=== PATIENT | female | born 1935 | race Caucasian/White ===

== ENCOUNTER 2017-09-01 11:35 | Inpatient (IN) | payer MEDICARE, OTHER, MEDICAID ==
[2017-09-01] MEDS ORDERED: NS 0.9% 1000 ML* 1,000 ML IV SCH ×2 (12:15→15:15)
[2017-09-01 13:12] LABS: Hematocrit 35 % (35-47); Hemoglobin 11.3 g/dl (12.0-16.0); Mean Corpuscular HGB Conc 32 g/dl (31-36); Mean Corpuscular Hemoglobin 30 pg (27-31); Mean Corpuscular Volume 93 fL (80-97); Mean Platelet Volume 8 um3 (7.4-10.4); Red Cell Distribution Width 17 % (10.5-15); White Blood Count 18.9 10^3/ul (3.5-10.8)
[2017-09-01 13:13] LABS: Add Diff/Slide Review? Manual Diff Added; Comments Flag Yes
[2017-09-01 13:24] LABS: ALT 8 U/L (7-52); AST 11 U/L (13-39); Albumin 1.9 g/dL (3.2-5.2); Alkaline Phosphatase 172 U/L (34-104); Anion Gap 5 mmol/L (2-11); BUN/Creatinine Ratio 19.2 (8-20); Blood Urea Nitrogen 10 mg/dL (6-24); C Reactive Protein 91.28 mg/L (< 5.00); CO2 Carbon Dioxide 26 mmol/L (22-32); Calcium 8.2 mg/dL (8.6-10.3); Chloride 107 mmol/L (101-111); Creatine Kinase 10 U/L (10-223); EGFR African American 145.9 (>60); EGFR Non-African American 113.5 (>60); Globulin 4.1 g/dL (2-4); Glucose 113 mg/dL (70-100); Lipase < 10 U/L (11.0-82.0); Magnesium 1.3 mg/dL (1.9-2.7); Potassium 3.4 mmol/L (3.5-5.0); Sodium 138 mmol/L (133-145)
[2017-09-01 13:26] LABS: Troponin I 0.01 ng/mL (<0.04)
--- NOTE | 2017-09-01 13:36 | RAD ---
INDICATION: Weakness. COMPARISON: There are no prior studies available for comparison. TECHNIQUE: A portable view of the chest was obtained. FINDINGS: Cardiac and mediastinal contours appear to be within normal limits. The lungs are underinflated. There is a small infiltrate at the right lung base. No pleural effusion is seen. IMPRESSION: LOW LUNG VOLUMES, SMALL RIGHT BASILAR INFILTRATE.
[2017-09-01 13:38] LABS: Add Path Review? YES; Neutrophil % 81 % (38-83); RBC Morphology Normal (Normal)
[2017-09-01 14:03] LABS: TSH (Thyroid Stimulating Horm) 1.88 mcIU/mL (0.34-5.60)
[2017-09-01] MEDS ORDERED: Magnesium Sulfate 2 GM IV* 2 GM/50 ML BAG IVPB ONE (15:15)
[2017-09-01] MEDS ORDERED: Piperacillin/Tazobac ADVAN(*) 3.375 GM in NS 0.9% 100 ML* 100 ML IVPB ONE (15:15)
[2017-09-01] MEDS ORDERED: Acetaminophen TAB* 325 MG PO PRN (15:15)
[2017-09-01] MEDS ORDERED: Potassium Chlor TAB* 20 MEQ TAB.ER PO ONE (15:15)
[2017-09-01] MEDS ORDERED: Ondansetron INJ* 2 MG/ML VIAL IV PRN (15:15)
[2017-09-01] MEDS ORDERED: Morphine INJ* 2 MG/ML 1 ML SYRINGE (TWO MG - NEW SYRINGE VERSION) IV PRN (15:15)
[2017-09-01] MEDS ORDERED: Vancomycin(*) 1,000 MG in NS 0.9% 250 ML* 250 ML IVPB SCH (15:16)
[2017-09-01] MEDS ORDERED: fentaNYL PATCH 25 MCG/HR TRANSDERM SCH (16:00)
[2017-09-01] MEDS ORDERED: Zosyn per Pharmacy* NOTE FOLLOW UP SCH (16:00)
[2017-09-01] MEDS ORDERED: Scopolamine 1.5 mg* PATCH TRANSDERM SCH (16:00)
[2017-09-01] MEDS ORDERED: Scopolamine PATCH Remove* 1 NOTE MISC PATCH OFF SCH (16:00)
[2017-09-01] MEDS ORDERED: Vancomycin per Pharmacy* NOTE FOLLOW UP PRN (16:03)
[2017-09-01] MEDS ORDERED: Vancomycin(*) 2,000 MG in NS 0.9% 500 ML* 500 ML IVPB ONE (17:00)
--- NOTE | 2017-09-01 18:07 | ED ---
Charis Flowers Julia, scribed for Rudy Newell MD on 09/01/17 at 1406 . Complex/Multi-Sys Presentation - HPI Summary HPI Summary: This patient is an 82 year old F BIBA to [facility] with a chief complaint of buttock bed sores characterized as burning worse since earlier today. The patient rates the pain 10/10 in severity. Symptoms aggravated by nothing. Symptoms alleviated by nothing. Patient reports intermittent chills and nausea for the past couple of weeks. Patient denies fever, SOB, chest pain, and abdominal pain. - History Of Current Complaint Chief Complaint: EDGeneral Time Seen by Provider: 09/01/17 12:12 Hx Obtained From: Patient Onset/Duration: Gradual Onset, Still Present, Worse Since Timing: Constant Aggravating Factor(s): nothing Alleviating Factor(s): nothing Associated Signs And Symptoms: Positive: Other - intermittent chills and nausea - Allergies/Home Medications Allergies/Adverse Reactions: Allergies Allergy/AdvReac Type Severity Reaction Status Date / Time Cephalexin [From Keflex] Allergy Unknown Verified 09/01/17 11:52 Reaction Details Ciprofloxacin [From Cipro] Allergy Unknown Verified 09/01/17 11:52 Reaction Details Codeine Allergy Unknown Verified 09/01/17 11:52 Reaction Details Iodine Allergy Unknown Verified 09/01/17 11:52 Reaction Details Rofecoxib [From Vioxx] Allergy Unknown Verified 09/01/17 11:52 Reaction Details Sulfa Antibiotics Allergy Unknown Verified 09/01/17 11:52 Reaction Details Tramadol Allergy Unknown Verified 09/01/17 11:52 Reaction Details Home Medications: Home Medications Acetaminophen [Acetaminophen Extra Stren] 1,000 mg PO Q8HR PRN 09/01/17 [ History Confirmed 09/01/17] Ascorbic Acid TAB* [Vitamin C TAB*] 500 mg PO DAILY 09/01/17 [History Confirmed 09/01/17] Aspirin EC Low Dose* [Ecotrin EC Low Dose 81 MG*] 81 mg PO DAILY 09/01/17 [ History Confirmed 09/01/17] Baclofen TAB* [Lioresal TAB*] 10 mg PO DAILY 09/01/17 [History Confirmed ] Bisacodyl SUPP* [Dulcolax Supp*] 10 mg ID DAILY PRN 09/01/17 [History Confirmed 09/01/17] DOXYcycline CAP(*) [DOXYcycline 100MG CAP(*)] 100 mg PO BID 09/01/17 [History Confirmed 09/01/17] Erythromycin OPHTH.OINT* [Ilotycin OPHTH.OINT*] 1 applic BOTH EYES BID 09/01/17 [History Confirmed 09/01/17] Erythromycin OPTH OINT* [Erythromycin 0.5% OPTH OINT*] 1 applic BOTH EYES BID [History Confirmed 09/01/17] Fexofenadine (NF) [Val 180 (NF)] 180 mg PO DAILY PRN 09/01/17 [History Confirmed 09/01/17] Gabapentin CAP(*) [Neurontin 400 mg CAP(*)] 800 mg PO TID 09/01/17 [History Confirmed 09/01/17] Ipratropium [place] (Nasal) [Ipratropium [place]] 0.06 % BOTH NARES BID [History Confirmed 09/01/17] Isosorbide Mononitrate ER TAB* [Imdur ER TAB*] 120 mg PO DAILY 09/01/17 [ History Confirmed 09/01/17] LORazepam TAB(*) [Ativan 0.5 MG TAB (*)] 0.5 mg PO Q4H PRN 09/01/17 [History Confirmed 09/01/17] Lisinopril TAB* [Prinivil TAB*] 5 mg PO DAILY 09/01/17 [History Confirmed ] Melatonin 10 mg PO BEDTIME PRN 09/01/17 [History Confirmed 09/01/17] Metoprolol Succinate XL TAB* [Toprol XL TAB*] 25 mg PO DAILY 09/01/17 [History Confirmed 09/01/17] Scopolamine 1.5 mg* PATCH* [Transderm-Scop 1.5 mg Patch*] 1 patch TRANSDERM Q72H 09/01/17 [History Confirmed 09/01/17] Simethicone [Eql Gas Relief Ultra Stre] 180 mg PO TID WITH MEALS PRN 09/01/17 [ History Confirmed 09/01/17] Simvastatin TAB(NF) [Zocor(NF)] 20 mg PO DAILY 09/01/17 [History Confirmed 09/01] Trolamine Salicylate [Asper-Flex] 10 % TOPICAL QPM 12/20/17 [History Confirmed 09/01/17] fentaNYL PATCH 25 MCG/HR* [Duragesic PATCH 25 Mcg/Hr*] 25 mcg TRANSDERM Q72H [History Confirmed 09/01/17] guaiFENesin ER TAB [Mucinex*] 600 mg PO Q12H 09/01/17 [History Confirmed ] PMH/Surg Hx/FS Hx/Imm Hx Opthamlomology History: Denies: Hx Legally Blind EENT History: Denies: Hx Deafness - Surgical History Surgery Procedure, Year, and Place: partial hysterectomy, cholecystectomy, appendectomy Infectious Disease History: No Infectious Disease History: Denies: Traveled Outside the [place] in Last 30 Days - Family History Known Family History: Negative: Cardiac Disease - Social History Alcohol Use: None Hx Substance Use: No Substance Use Type: Reports: None Smoking Status (MU): Unknown if Ever Smoked Review of Systems Positive: Chills. Negative: Fever Negative: Chest Pain Negative: Shortness Of Breath Positive: Nausea. Negative: Abdominal Pain Positive: Other - buttock sores All Other Systems Reviewed And Are Negative: Yes Physical Exam - Summary Physical Exam Summary: General: well-appearing, no pain distress Skin: warm, color reflects adequate perfusion, dry Head: normal Eyes: EOMI, ESTEPHANIA ENT: normal Neck: supple, nontender Respiratory: Rhonchi bilaterally, breath sounds present Cardiovascular: RRR Abdomen: soft, nontender, bowel sounds present Bowel: present Musculoskeletal: normal, strength/ROM intact, bilateral pitting edema Neurological: normal, sensory/motor intact, A&O x3 Psychological: affect/mood appropriate Triage Information Reviewed: Yes Vital Signs On Initial Exam: Initial Vitals BP 132/64 09/01/17 11:46 Vital Signs Reviewed: Yes - [place] Coma Scale Coma Scale Total: 15 Diagnostics - Vital Signs Vital Signs Temp Pulse Resp BP Pulse Ox 09/01/17 12:44 146/73 09/01/17 12:31 132/56 09/01/17 12:20 88 87 09/01/17 12:00 115 132/60 79 09/01/17 11:48 89 94 09/01/17 11:47 98.5 F 85 16 132/64 95 09/01/17 11:46 132/64 - Laboratory Lab Results: Lab Results 09/01/17 09/01/17 09/01/17 Range/Units 12:55 12:55 12:55 WBC (3.5-10.8) 10^3/ul RBC (4.0-5.4) 10^6/ul Hgb (12.0-16.0) g/dl Hct (35-47) % MCV (80-97) fL MCH (27-31) pg MCHC (31-36) g/dl RDW (10.5-15) % Plt Count (150-450) 10^3/ul MPV (7.4-10.4) um3 Absolute Neuts (auto) Absolute Lymphs (auto) Absolute Monos (auto) Absolute Eos (auto) Absolute Basos (auto) Absolute Nucleated RBC Neutrophils % (38-83) % Lymphocytes % (25-47) % Monocytes % (0-13) % Normal RBC Morphology (Normal) Hem Pathologist Commnt INR (Anticoag Therapy) 1.11 H (0.77-1.02) APTT 33.0 (26.0-36.3) seconds D-Dimer, Quantitative 458 H (Less Than 230) ng/mL Sodium 138 (133-145) mmol/L Potassium 3.4 L (3.5-5.0) mmol/L Chloride 107 (101-111) mmol/L Carbon Dioxide 26 (22-32) mmol/L Anion Gap 5 (2-11) mmol/L BUN 10 (6-24) mg/dL Creatinine 0.52 (0.51-0.95) mg/dL Est GFR ( Amer) 145.9 (>60) Est GFR (Non-Af Amer) 113.5 (>60) BUN/Creatinine Ratio 19.2 (8-20) Glucose 113 H (70-100) mg/dL Lactic Acid (0.5-2.0) mmol/L Calcium 8.2 L (8.6-10.3) mg/dL Magnesium 1.3 L (1.9-2.7) mg/dL Total Bilirubin 0.40 (0.2-1.0) mg/dL AST 11 L (13-39) U/L ALT 8 (7-52) U/L Alkaline Phosphatase 172 H (34-104) U/L Total Creatine Kinase 10 (10-223) U/L CK-MB (CK-2) 1.5 (0.6-6.3) ng/mL Troponin I 0.01 (<0.04) ng/mL C-Reactive Protein 91.28 H (< 5.00) mg/L B-Natriuretic Peptide 75 ( - 100) pg/mL Total Protein 6.0 L (6.4-8.9) g/dL Albumin 1.9 L (3.2-5.2) g/dL Globulin 4.1 H (2-4) g/dL Albumin/Globulin Ratio 0.5 L (1-3) Lipase < 10 L (11.0-82.0) U/L TSH Pending 09/01/17 09/01/17 Range/Units 12:55 12:55 WBC 18.9 H (3.5-10.8) 10^3/ul RBC 3.80 L (4.0-5.4) 10^6/ul Hgb 11.3 L (12.0-16.0) g/dl Hct 35 (35-47) % MCV 93 (80-97) fL MCH 30 (27-31) pg MCHC 32 (31-36) g/dl RDW 17 H (10.5-15) % Plt Count 409 (150-450) 10^3/ul MPV 8 (7.4-10.4) um3 Absolute Neuts (auto) Pending Absolute Lymphs (auto) Pending Absolute Monos (auto) Pending Absolute Eos (auto) Pending Absolute Basos (auto) Pending Absolute Nucleated RBC Pending Neutrophils % 81 (38-83) % Lymphocytes % 10 L (25-47) % Monocytes % 9 (0-13) % Normal RBC Morphology Normal (Normal) Hem Pathologist Commnt Pending INR (Anticoag Therapy) (0.77-1.02) APTT (26.0-36.3) seconds D-Dimer, Quantitative (Less Than 230) ng/mL Sodium (133-145) mmol/L Potassium (3.5-5.0) mmol/L Chloride (101-111) mmol/L Carbon Dioxide (22-32) mmol/L Anion Gap (2-11) mmol/L BUN (6-24) mg/dL Creatinine (0.51-0.95) mg/dL Est GFR ( Amer) (>60) Est GFR (Non-Af Amer) (>60) BUN/Creatinine Ratio (8-20) Glucose (70-100) mg/dL Lactic Acid 1.0 (0.5-2.0) mmol/L Calcium (8.6-10.3) mg/dL Magnesium (1.9-2.7) mg/dL Total Bilirubin (0.2-1.0) mg/dL AST (13-39) U/L ALT (7-52) U/L Alkaline Phosphatase (34-104) U/L Total Creatine Kinase (10-223) U/L CK-MB (CK-2) (0.6-6.3) ng/mL Troponin I (<0.04) ng/mL C-Reactive Protein (< 5.00) mg/L B-Natriuretic Peptide ( - 100) pg/mL Total Protein (6.4-8.9) g/dL Albumin (3.2-5.2) g/dL Globulin (2-4) g/dL Albumin/Globulin Ratio (1-3) Lipase (11.0-82.0) U/L TSH Result Diagrams: 09/01/17 12:55 09/01/17 12:55 Lab Statement: Any lab studies that have been ordered have been reviewed, and results considered in the medical decision making process. - Radiology CXR Radiology Interpretation Completed By: Radiologist - LOW LUNG VOLUMES, SMALL RIGHT BASILAR INFILTRATE. ED doctor has reviewed this radiology report. - EKG 1225 Cardiac Rate: NL EKG Rhythm: Sinus Rhythm - 90 BPM Ectopy: None EKG Interpretation: Minimal St elevation, inferior leads Complex Multi-Symp Course/Dx Course Of Treatment: ADMIT HOSPITALIST - Diagnoses Provider Diagnoses: Decubitus ulcer Discharge - Discharge Plan Condition: Stable Disposition: ADMITTED TO [facility] The documentation as recorded by the Charis johnson Julia accurately reflects the service I personally performed and the decisions made by , Rudy Newell MD.
[2017-09-01] MEDS: guaiFENesin ER TAB 600 MG PO SCH (18:20)
[2017-09-01] MEDS: fentaNYL Patch Check Q Shift 1 NOTE SCH (19:20)
--- NOTE | 2017-09-01 21:02 | HP ---
CC: Dr. Armendariz; Dr. Hartley; Dr. Olmedo * HISTORY AND PHYSICAL: DATE OF ADMISSION: 09/01/17 PRIMARY CARE PROVIDER: [facility], Dr. Armendariz. ATTENDING PHYSICIAN WHILE IN THE HOSPITAL: Ingrid Fisher MD * (report dictated by Alexys Solitario NP) CONSULTING ID SPECIALIST: Dr. Hartley. CONSULTING OUT OF CARE PHYSICIAN: Dr. Olmedo. 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 HISTORY OF PRESENT ILLNESS: Mrs. Jose is an 82-year-old female patient who on 07/12/17 was admitted to [facility], was diagnosed with sepsis secondary to presumed UTI, pneumonia, and possible wound infection to her sacrum, ultimately was found to have osteomyelitis. The patient had deteriorated. She was essentially becoming less responsive. She was quite ill and the family decided to forgo aggressive therapy with PICC line and IV antibiotics and she was transferred to [facility], which is a [facility] facility connected to [place]. While there, they were going to move her to the third floor at [place] and she may have to share a room. The family had requested that she be transferred back to [place] where she had been living since 2011 because she has severe MS. The patient when she got to [place] just at the beginning of August, she made a miraculous improvement, she was conversing, she was talking. She was going to continue wound care again for her stage IV pressure ulcer. She was to have a Wound appointment here on Wednesday , but there was concern that the wound had this active infection that was not being treated and it was discussed with the patient if she was interested in getting antibiotics and the patient had told the staff at [facility] that she would want antibiotics, so she was transferred to [facility] for further evaluation of the wound. The patient states that her biggest complaint is that she is having a significant amount of pain in her sacrum if she tries to sit. She said she has had this wound since 2011. She denies having any chills. She states her temperature has been around 96. She denies having any chest pain, shortness of breath. She said she has been coughing. It has been productive of yellow sputum at times. She denied having any chest pain or any shortness of breath with this. She said she has not had any abdominal pain. She has had a decreased appetite, has not really felt like eating. Denies having any worsening weakness. She states that she typically is bedbound because of the severe MS but because of this concerning infection, we were asked to evaluate for admission. PAST MEDICAL HISTORY: Significant for: 1. Obesity. 2. AFib. 3. GERD. 4. Hypertension. 5. Neurogenic bladder with chronic Crump. 6. CAD. 7. MS. 8. Anxiety. 9. Depression. 10. Rheumatic heart disease. 11. Stage IV pressure ulcer. 12. History of breast cancer. PAST SURGICAL HISTORY: 1. She has had mastectomy. 2. She has had laparoscopic cholecystectomy. 3. Tonsillectomy. 4. Bilateral total knee replacements. 5. Bunionectomy. 6. Hysterectomy. MEDICATIONS: Home meds according to [facility] includes: 1. Doxycycline 100 mg p.o. b.i.d. 2. Fentanyl 25 mcg transdermally every 72 hours. 3. Ativan 0.5 mg every 4 hours as needed. 4. Mucinex 600 mg p.o. every 12 hours. 5. Erythromycin 1 application topically both eyes b.i.d. 6. Scopolamine patch, 1 patch transdermally every 72 hours. ALLERGIES TO MEDICATIONS: Include TRAMADOL, KEFLEX, CIPRO, CODEINE, IODINE, VIOXX, and SULFA. FAMILY HISTORY: Both her parents had heart failure. SOCIAL HISTORY: She does not smoke. Does not drink. Her surrogate decision maker is her daughter, Comfort. REVIEW OF SYSTEMS: No documented fever. She denied any significant weight change. No double vision. No ear discharge. Denied having any rhinorrhea. No sore throat. No thyroid enlargement. Denied having any chest pain. There was no orthopnea. No nocturnal dyspnea. There was no abdominal pain. No nausea. No vomiting. No dysuria. No frequency. There was no seizure. No loss of consciousness. No pruritus and there is a skin ulceration per my HPI. Review of 14 systems was completed, all others negative. PHYSICAL EXAMINATION GENERAL: At this time, Mrs. Jose is an 82-year-old female patient. She is sitting on the ED stretcher. She does not appear to be in any acute distress. She is chronically ill appearing. VITAL SIGNS: Blood pressure 146/73, pulse of 88, respirations were 18, her O2 saturations were noted to be 87%, then on 2 L she is noted to be at 95%. HEENT: Head: Atraumatic, normocephalic. Eyes: EOMs are intact. Sclerae anicteric, not pale. Throat: Oral mucosa appears to be moist. No oropharyngeal erythema. NECK: Supple. LUNGS: She had rhonchi in the upper lobes. Equal diaphragmatic expansion. HEART: Sounds S1, S2. Irregularly irregular rate. No murmurs, rubs, or gallops. ABDOMEN: Soft, flat, nontender. Bowel sounds are present. EXTREMITIES: She had +2 pitting edema. NEUROLOGIC: She is awake. She is alert. She is oriented x3. She had no gross focal deficits. SKIN: She has a significant stage IV pressure ulcer noted to her sacrum with extensive tunneling to her sacrum and she also has stage I pressure ulcer to her right thigh. LABORATORY DATA/DIAGNOSTIC STUDIES: Her labs today revealed a WBC of 18.9, RBC of 3.80, hemoglobin 11.3, hematocrit 35, platelet count of 409. INR 1.11, PTT at 33.0. D-dimer of 458. Her sodium was 138, potassium was 3.4, chloride of 107, bicarb 26, BUN 10, creatinine of 0.52, glucose 113. Lactate 1. Calcium 8.2, mag 1.2. Total bili 0.4, AST 11, ALT 8, alk phos 172. CK 10, CK- MB 1.5. Troponin 0.01. TSH was normal. Urine is pending. She had a chest x-ray obtained today which revealed low lung volume, small right basilar infiltrate. She had an EKG obtained today, which revealed sinus rhythm, rate of 90. There appears to be a intraventricular conduction delay. No previous EKG for comparison. She had no gross ST elevations or T wave inversions. Old medical records were reviewed. ASSESSMENT AND PLAN: Mrs. Jose is an 82-year-old female patient coming in to the ED today with complaints of stage IV wound, concern for osteomyelitis. She will be admitted under inpatient status for: 1. Sepsis: Again, the source of the sepsis is unclear. She certainly could have a urinary tract infection. Her lungs, she has rhonchus on exam and in addition to this she also has a stage IV wound that in June apparently had an MRI done in [place] that did show osteomyelitis and at that point the patient was critically ill and the family felt that they want to keep her comfortable; however, since that time, the patient has turned around and was expressing interest for treatment to the team at [facility]. She does have a white count of 18,000 today. My plan would be to go ahead and again get blood cultures. We will get an ID consult with Dr. Hartley. We will try to get those records from [place]. I will go ahead and treat her with vanco and Zosyn to cover possible justin care acquired pneumonia, possible aspiration pneumonia, osteomyelitis and also cover a urinary tract infection. She received fluid here in the ED. I am not going to give her any more boluses as she received this here in the ED and we will continue to follow. 2. Stage IV pressure ulcer: I do not suspect this wound will ever heal. It has been there since 2011. We will get Wound Care involved. Continue wet to dry dressings. We will continue to monitor. 3. Multiple sclerosis: Continue with her meds as prescribed. 4. Atrial fibrillation: We are going to try to get her records from [place] in June when she was taking chronic medications. We will get these restarted. 4. Hypertension: We will restart meds when we have an accurate list. 5. History of neurogenic bladder: Continue Crump. 6. Coronary artery disease: Again, we will get her started back on her chronic medications those were stopped when she was on comfort care. 7. History of anxiety, depression: Continue supportive care. 8. History of breast cancer: Follow with primary. 9. Prognosis: At this point, again the patient has severe multiple sclerosis, she is bed bound, she has stage IV pressure ulcer. She does have a poor overall prognosis. I did discuss in detail with the daughter and the patient that even if we do treat this infection, there is no guarantee that she may have recurrent infection or that the antibiotics will fully treat the infection. The fact that she has multiple sclerosis and again it is progressive disease and the fact that she has a stage IV pressure ulcer, it is most likely it is never going to heal. So, I do think she is appropriate to have hospice from our facility to reevaluate her to see if she would be appropriate. The patient in discussing this with her, she really said that she just wants to be pain-free. She is tired of being in pain. She states her sacrum is always hurting, her butt always hurts. She is only comfortable in a couple of different positions and so at this point until we get our palliative team on board and help us, I believe antibiotics are definitely appropriate, getting the ID consult as well and getting those records from [place]. 10. DVT prophylaxis: I will place her on heparin subcu. 11. Her code status, she does have a DNR. 12. Fluids, electrolytes, and nutrition: I am going to make her n.p.o. until I know for sure that she is swallowing safely. I believe they met some Speech. TIME SPENT: Time spent on this admission was approximately 90 minutes, greater than half the time was spent [id number] with the patient obtaining my history and physical, other half time was spent going over the plan of care with the patient and implementing plan of care. I did discuss the plan of care with my attending, Dr. Fisher; she is in agreement. ALEXYS SOLITARIO, ALFREDITO [id number]/CPS #: [id number] ABELARDO
[2017-09-01] MEDS: Heparin VIAL(*) 5000 UNITS/ML VIAL (FIVE THOUSAND) SUBCUT SCH (21:11)
[2017-09-01] MEDS: Gabapentin CAP(*) 400 MG PO SCH (21:45)
[2017-09-01 21:56] LABS: Urine Bacteria 1+ (Absent); Urine Bilirubin Negative (Negative); Urine Glucose Negative (Negative); Urine Nitrite Positive (Negative)
[2017-09-02] MEDS ORDERED: Vancomycin(*) 1,500 MG in NS 0.9% 500 ML* 500 ML IVPB SCH (02:00)
[2017-09-02] MEDS: Heparin VIAL(*) 5000 UNITS/ML VIAL (FIVE THOUSAND) SUBCUT SCH ×3 (04:58→21:44)
[2017-09-02] MEDS: ZOSYN 3.375 GM Q8H per EXTENDED INFUSION IVPB SCH ×6 (04:58→20:13)
[2017-09-02] MEDS: guaiFENesin ER TAB 600 MG PO SCH ×2 (05:01→15:55)
[2017-09-02 07:27] LABS: Hematocrit 32 % (35-47); Hemoglobin 10.5 g/dl (12.0-16.0); Mean Corpuscular HGB Conc 33 g/dl (31-36); Mean Corpuscular Hemoglobin 31 pg (27-31); Mean Corpuscular Volume 94 fL (80-97); Mean Platelet Volume 8 um3 (7.4-10.4); Red Blood Count 3.42 10^6/ul (4.0-5.4); Red Cell Distribution Width 17 % (10.5-15); White Blood Count 15.6 10^3/ul (3.5-10.8)
[2017-09-02 07:30] LABS: Add Diff/Slide Review? Manual Diff Added; Comments Flag Yes
[2017-09-02 07:38] LABS: BUN/Creatinine Ratio 18.8 (8-20); Calcium 7.9 mg/dL (8.6-10.3); EGFR Non-African American 124.4 (>60); Potassium 3.5 mmol/L (3.5-5.0)
[2017-09-02 08:21] LABS: Eosinophils % 1 % (0-6); Neutrophil % 78 % (38-83)
[2017-09-02 08:22] LABS: Add Path Review? YES; RBC Morphology Normal (Normal)
[2017-09-02] MEDS ORDERED: Isosorbide Mononitrate ER TAB* 60 MG PO SCH ×2 (09:00→16:46)
[2017-09-02] MEDS ORDERED: Lisinopril TAB* 5 MG PO SCH ×2 (09:00→16:46)
[2017-09-02] MEDS ORDERED: Metoprolol Succinate XL TAB* 25 MG PO SCH ×2 (09:00→16:46)
[2017-09-02] MEDS ORDERED: VANCOMYCIN IVPB SCH (10:00)
[2017-09-02] MEDS ORDERED: NS 0.9% IVPB SCH (10:00)
[2017-09-02] MEDS ORDERED: Vancomycin(*) 1,500 MG in NS 0.9% 250 ML* 250 ML IVPB SCH (10:00)
[2017-09-02] MEDS: fentaNYL Patch Check Q Shift 1 NOTE SCH ×2 (10:14→19:36)
[2017-09-02] MEDS: Gabapentin CAP(*) 400 MG PO SCH ×3 (10:20→21:33)
[2017-09-02] MEDS: Atorvastatin* 10 MG TAB PO SCH (10:21)
[2017-09-02] MEDS: Aspirin EC Low Dose* 81 MG TAB.EC PO SCH (10:21)
[2017-09-02] MEDS: Baclofen TAB* 10 MG PO SCH (10:21)
--- NOTE | 2017-09-02 13:25 | RAD ---
HISTORY: sacral wounds, history of osteomyelitis, question fistula COMPARISONS: None TECHNIQUE: Multiple contiguous axial CT images are obtained of the pelvis, with coronal and sagittal multiplanar reconstructions, without intravenous contrast administration. FINDINGS: BONE DENSITY: There is diffuse osteopenia. BONES: There is erosion or periosteal reaction along the right ischium and inferior pubic ramus along a large soft tissue defect. 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 There is facet osteoarthritis. MUSCULATURE: There is diffuse fatty atrophy of the visualized muscle groups. ALIGNMENT: There is no dislocation. SOFT TISSUES: As noted above, there is a large soft tissue defect along the right buttock extending to the level of the right ischium and inferior pubic ramus OTHER FINDINGS: None. IMPRESSION: THERE IS A LARGE SOFT TISSUE DEFECT ALONG THE RIGHT BUTTOCK EXTENDING TO THE ISCHIUM AND INFERIOR PUBIC RAMUS WITH ASSOCIATED EROSION AND PERIOSTEAL REACTION CONSISTENT WITH DECUBITUS ULCER WITH OSTEOMYELITIS
--- NOTE | 2017-09-02 13:47 | PN ---
Progress Note - Progress Note Date of Service: 09/02/17 Note: Brief Surgery Note: (full consult dictated) S: Admission H&P reviewed. Main c/o is sacral pain, which she states has been increasing. She denies fever, chills, or shakes. From the HPI it does not sound as though there was any recent acute change. She admits to cough which has been present since her last hospital admission in Jun. O: Vital Signs - 8 hr 09/02/17 09/02/17 09/02/17 07:40 10:20 12:21 Temperature 97.4 F Pulse Rate 84 Respiratory 16 16 24 Rate Blood Pressure 147/50 (mmHg) O2 Sat by Pulse 96 Oximetry Gen: obese female in NAD, immobile re: LE's Skin: wound medial aspect of right heel, covered w/ dry dsg; one superficial wound (epidermis only) proximal posterior Right thigh, measures ~ 1 cm; 2nd wound, just superior to sacrum, measures ~ 1.5 cm in diameter, also epideris only; 3rd wound, at Right ischial tuberosity, measures ~ 6 x 4 cm w/ ~ 6 cm of depth in multiple directions, with palp bone cortex, c/w osteomyelitis. There is no evidence of abscess or undrained collection. The area is moderately tender. Labs reviewed. Albumin 1.9 CT pelvis (personally reviewed): FINDINGS: BONE DENSITY: There is diffuse osteopenia. BONES: There is erosion or periosteal reaction along the right ischium and inferior pubic ramus along a large soft tissue defect. 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 There is facet osteoarthritis. MUSCULATURE: There is diffuse fatty atrophy of the visualized muscle groups. ALIGNMENT: There is no dislocation. SOFT TISSUES: As noted above, there is a large soft tissue defect along the right buttock extending to the level of the right ischium and inferior pubic ramus OTHER FINDINGS: None. IMPRESSION: THERE IS A LARGE SOFT TISSUE DEFECT ALONG THE RIGHT BUTTOCK EXTENDING TO THE ISCHIUM AND INFERIOR PUBIC RAMUS WITH ASSOCIATED EROSION AND PERIOSTEAL REACTION CONSISTENT WITH DECUBITUS ULCER WITH OSTEOMYELITIS Imp: chronic osteomyelitis right ischium w/ adjacent superficial, nonthreatening areas of superficial ulceration in patient w/ add'l potential sources of sepsis (respiratory and ), though not certain of the basis for "sepsis" other than leukocytosis. P: this ischial wound w/ chronic osteo does not appear to be a cause of acute sepsis and because of patient's comorbidities (immobility 2/2 MS; protein malnutrition, and obesity) it is unlikely to heal. Rather, best maintenance care of the wounds is most realistic with current pressure reduction measures, and local wound care w/ NS-moist packing to open wound q day and prn. Dr. Hartley has also seen the patient and his consult note is pending. Will defer antibiotic choices and duration to him and the hospitalist team. Will follow while inpatient and will d/w Dr. Gregory.
--- NOTE | 2017-09-02 15:14 | CONS ---
CONSULTATION REPORT: DATE OF CONSULT: 09/02/17 REQUESTING PROVIDER: Alexys Solitario NP. CONSULTING SERVICE: Infectious Disease. REASON FOR CONSULTATION: Large sacral decubitus ulcer, leukocytosis. IMPRESSION: 1. Malaise and fever in the setting of a large decubitus ulcer, there is a very good likelihood that is the source, wound infection and soft tissue cellulitis, could be chronic osteomyelitis as well. 2. Cough nonproductive, no infiltrate on x-ray to my eye. I think a pneumonia is less likely. 3. Obesity. 4. Neurogenic bladder with chronic Crump, so a urinary tract infection is a consideration, cultures pending. RECOMMENDATIONS: Continue Zosyn. We will stop the vancomycin and obtain a CT of the pelvis to evaluate the decubitus ulcer and see where they lead. Blood and urine cultures are pending. HISTORY OF PRESENT ILLNESS: This is an 82-year-old woman who had been at [facility] in June where she was treated for decubitus ulcer and pneumonia. She had an impressive recovery thereafter where she was at a nursing facility in [place]. More recently she has developed fever, malaise and then was seen by Dr. Guerrero yesterday, who recommended she be seen in the ER for large decubitus ulcer which were rapidly getting worse according to the aid who is with her. She was seen in the ER yesterday, she had a white count of 15,000. She was started on vancomycin and Zosyn. A chest x-ray was read as a small right basilar infiltrate. Her initial white count was 19,000, down to 15 ,000 today. She has been afebrile. She is saturating in the 96% range on room air, has an occasional cough. She does choke when she eats or drinks. She has no chest pain. She thinks she feels a little bit more energetic today. PAST MEDICAL HISTORY: 1. Obesity. 2. Multiple sclerosis. 3. Recent pneumonia. 4. Neurogenic bladder with chronic Crump. 5. Hypertension. 6. Gastroesophageal reflux disease. 7. Atrial fibrillation. 8. Coronary artery disease. 9. Anxiety. 10. Depression. 11. Rheumatic heart disease. 12. Chronic decubitus ulceration of the sacrum. 13. History of breast cancer, status post mastectomy. 14. Status post laparoscopic cholecystectomy. 15. Status post tonsillectomy. 16. Status post bilateral knee arthroplasties. 17. Status post bilateral bunionectomy. 18. Status post hysterectomy. MEDICATIONS: 1. Tylenol. 2. Aspirin. 3. Lipitor. 4. Baclofen. 5. Fentanyl patch. 6. Gabapentin. 7. Heparin subcutaneous injection. 8. Imdur. 9. Lisinopril. 10. Metoprolol. 11. Zosyn 3.375 g IV every 8 hours. 12. Scopolamine patch. 13. Vancomycin 1500 mg every 8 hours. ALLERGIES: To TRAMADOL, KEFLEX, CIPRO, CODEINE, IODINE, VIOXX and SULFA. FAMILY HISTORY: No recurrent infections or tuberculosis. SOCIAL HISTORY: She lives in a nursing facility in [place]. No travel. No sick contacts. REVIEW OF SYSTEMS: A 14-point review of systems is negative except as noted above. PHYSICAL EXAM: Vital Signs: Temperature 36.3, heart rate 80, respiratory rate 16, blood pressure 150/50, O2 sat 96% on room air. In general, she is awake, not in distress. Neurologic: She is oriented x3. Follows all commands. HEENT : There is no conjunctival hemorrhage. Oropharynx: Without lesions. Neck: Supple without nuchal rigidity. Lymph Nodes: There is no cervical, supraclavicular, inguinal, axillary or epitrochlear lymphadenopathy. Heart has regular rate and rhythm without murmurs, rubs or gallops. Lungs have coarse breath sounds bilaterally with expiratory rhonchi. No wheeze or rales. Abdomen : Soft, nontender, nondistended. There is bowel sounds present. Skin: There is no rash or splinter hemorrhages. Musculoskeletal: There is no spine tenderness to palpation. There are a few decubitus ulcers on the sacral area, one is more perineal and deeper and tracks 6 cm deep, about 3 cm in diameter. There are two smaller, one is more proximally over the sacrum. Surrounding mild erythema. LABORATORY DATA: White blood cell count 15, hemoglobin 10, platelets 375,000. Creatinine is 0.5, CRP was 91. Please see impressions and recommendations outlined above, which I have discussed with Bridgette Covington NP. Thanks for asking me to see Ms. Jose in consultation. [id number]/[facility] #: [id number] [facility]
--- NOTE | 2017-09-02 15:28 | PN ---
Subjective Date of Service: 09/02/17 Interval History: Patient seen and examined at bedside. This is an 82 yo female who was previously treated at [facility] for decubitus ulcer, osteomyelitis, sepsis and pneumonia; due to her declining state, her family opted to have her transferred to long term on comfort care measures. However, she has had significant recovery and has been [place] [facility] [place] and management. However, she has recently developed fever and increased fatigue and was referred to the ER, where she was found to have elevated WBC count and new concern for infection. She was started on vancomycin and Zosyn. Ms. Jose has a history of MS and is immobile secondary to leg pain and MS. She has had chronic wounds since 2011. Today, she reports feeling hungry ( has been NPO secondary to concern for aspiration). She reportedly chokes with food/drink and has a speech eval pending. Denies COB, chest pain. She generally is feeling better since being on the antibiotics. She is still interested in pursuing treatment for her infection and any recommended management for her chronic decubitus ulceration. Tele: SR with 1st degree heart block, 90s Family History: Unchanged from Admission Social History: Unchanged from Admission Past Medical History: Unchanged from Admission Objective Active Medications: Acetaminophen (Tylenol Tab*) 650 mg PO Q4H PRN PRN Reason: FEVER/PAIN Aspirin (Aspirin Ec Low Dose*) 81 mg PO DAILY [facility] Last Admin: 09/02/17 10:21 Dose: 81 mg Atorvastatin Calcium (Lipitor*) 10 mg PO DAILY [facility] Last Admin: 09/02/17 10:21 Dose: 10 mg Baclofen (Lioresal Tab*) 10 mg PO DAILY [facility] Last Admin: 09/02/17 10:21 Dose: 10 mg Fentanyl (Duragesic Patch 25 Mcg/Hr*) 25 mcg TRANSDERM Q72H [facility] Last Admin: 09/01/17 17:44 Dose: 25 mcg Gabapentin (Neurontin Cap(*)) 800 mg PO TID [facility] Last Admin: 09/02/17 10:20 Dose: 800 mg Guaifenesin (Mucinex*) 600 mg PO Q12H [facility] Last Admin: 09/02/17 05:01 Dose: Not Given Heparin Sodium (Porcine) (Heparin Vial(*)) 5,000 units SUBCUT Q8HR [facility] Last Admin: 09/02/17 04:58 Dose: 5,000 units Piperacillin Sod/Tazobactam (Sod 3.375 gm/ Sodium Chloride) 100 mls @ 25 mls/ hr IVPB Q8H [facility] Last Admin: 09/02/17 04:58 Dose: 25 mls/hr Isosorbide Mononitrate (Imdur Er Tab*) 120 mg PO DAILY [facility] Last Admin: 09/02/17 10:21 Dose: 120 mg Lisinopril (Prinivil Tab*) 5 mg PO DAILY [facility] Last Admin: 09/02/17 10:21 Dose: 5 mg Metoprolol Succinate (Toprol Xl Tab*) 25 mg PO DAILY [facility] Last Admin: 09/02/17 10:20 Dose: 25 mg Morphine Sulfate (Morphine Inj (Syringe)*) 2 mg IV Q4H PRN PRN Reason: PAIN - MILD Ondansetron HCl (Zofran Inj*) 4 mg IV Q6H PRN PRN Reason: NAUSEA Last Admin: 09/01/17 16:36 Dose: 4 mg Pharmacy Consult (Zosyn Per Pharmacy*) 1 note FOLLOW UP .ZOSYN PER PHARMACY [facility] Pharmacy Profile Note (Fentanyl Patch Check Q Shift) 0 note N/A 0700,1900 [facility] Last Admin: 09/02/17 10:14 Dose: 1 note Pharmacy Profile Note (Scopolamine Patch Remove*) 1 note PATCH OFF Q72H [facility] Last Admin: 09/01/17 17:51 Dose: 1 note Scopolamine (Transderm-Scop 1.5 Mg Patch*) 1 patch TRANSDERM Q72H [facility] Last Admin: 09/01/17 17:39 Dose: 1 patch Vital Signs - 8 hr 09/02/17 09/02/17 09/02/17 07:40 10:20 12:21 Temperature 97.4 F Pulse Rate 84 Respiratory 16 16 24 Rate Blood Pressure 147/50 (mmHg) O2 Sat by Pulse 96 Oximetry Oxygen Devices in Use Now: None Appearance: Female patient, lying in bed, NAD Eyes: No Scleral Icterus, PERRLA Ears/Nose/Mouth/Throat: Clear Oropharnyx, Mucous Membranes Moist Neck: NL Appearance and Movements; NL JVP Respiratory: Symmetrical Chest Expansion and Respiratory Effort, - - expiratory rhonchi, heard anteriorly Cardiovascular: NL Sounds; No Murmurs; No JVD, RRR, - - 2+ pitting edema to BLE Abdominal: NL Sounds; No Tenderness; No Distention Extremities: No Clubbing, Cyanosis Skin: - - Patient with sacral decubitus ulcer, lower left buttock ulcer and ulcer to inner right buttock Neurological: Alert and Oriented x 3 Lines/Tubes/Other Access: Clean, Dry and Intact Peripheral IV Nutrition: Taking PO's - passed swallow screen Result Diagrams: 09/02/17 07:01 09/02/17 07:01 Additional Lab and Data: Lab Results 09/01/17 09/01/17 09/01/17 Range/Units 12:55 12:55 12:55 WBC (3.5-10.8) 10^3/ul RBC (4.0-5.4) 10^6/ul Hgb (12.0-16.0) g/dl Hct (35-47) % MCV (80-97) fL MCH (27-31) pg MCHC (31-36) g/dl RDW (10.5-15) % Plt Count (150-450) 10^3/ul MPV (7.4-10.4) um3 Absolute Neuts (auto) Absolute Lymphs (auto) Absolute Monos (auto) Absolute Eos (auto) Absolute Basos (auto) Absolute Nucleated RBC Neutrophils % (38-83) % Lymphocytes % (25-47) % Monocytes % (0-13) % Normal RBC Morphology (Normal) Hem Pathologist Commnt INR (Anticoag Therapy) 1.11 H (0.77-1.02) APTT 33.0 (26.0-36.3) seconds D-Dimer, Quantitative 458 H (Less Than 230) ng/mL Sodium 138 (133-145) mmol/L Potassium 3.4 L (3.5-5.0) mmol/L Chloride 107 (101-111) mmol/L Carbon Dioxide 26 (22-32) mmol/L Anion Gap 5 (2-11) mmol/L BUN 10 (6-24) mg/dL Creatinine 0.52 (0.51-0.95) mg/dL Est GFR ( Amer) 145.9 (>60) Est GFR (Non-Af Amer) 113.5 (>60) BUN/Creatinine Ratio 19.2 (8-20) Glucose 113 H (70-100) mg/dL Lactic Acid (0.5-2.0) mmol/L Calcium 8.2 L (8.6-10.3) mg/dL Magnesium 1.3 L (1.9-2.7) mg/dL Total Bilirubin 0.40 (0.2-1.0) mg/dL AST 11 L (13-39) U/L ALT 8 (7-52) U/L Alkaline Phosphatase 172 H (34-104) U/L Total Creatine Kinase 10 (10-223) U/L CK-MB (CK-2) 1.5 (0.6-6.3) ng/mL Troponin I 0.01 (<0.04) ng/mL C-Reactive Protein 91.28 H (< 5.00) mg/L B-Natriuretic Peptide 75 ( - 100) pg/mL Total Protein 6.0 L (6.4-8.9) g/dL Albumin 1.9 L (3.2-5.2) g/dL Globulin 4.1 H (2-4) g/dL Albumin/Globulin Ratio 0.5 L (1-3) Lipase < 10 L (11.0-82.0) U/L TSH Pending 09/01/17 09/01/17 Range/Units 12:55 12:55 WBC 18.9 H (3.5-10.8) 10^3/ul RBC 3.80 L (4.0-5.4) 10^6/ul Hgb 11.3 L (12.0-16.0) g/dl Hct 35 (35-47) % MCV 93 (80-97) fL MCH 30 (27-31) pg MCHC 32 (31-36) g/dl RDW 17 H (10.5-15) % Plt Count 409 (150-450) 10^3/ul MPV 8 (7.4-10.4) um3 Absolute Neuts (auto) Pending Absolute Lymphs (auto) Pending Absolute Monos (auto) Pending Absolute Eos (auto) Pending Absolute Basos (auto) Pending Absolute Nucleated RBC Pending Neutrophils % 81 (38-83) % Lymphocytes % 10 L (25-47) % Monocytes % 9 (0-13) % Normal RBC Morphology Normal (Normal) Hem Pathologist Commnt Pending INR (Anticoag Therapy) (0.77-1.02) APTT (26.0-36.3) seconds D-Dimer, Quantitative (Less Than 230) ng/mL Sodium (133-145) mmol/L Potassium (3.5-5.0) mmol/L Chloride (101-111) mmol/L Carbon Dioxide (22-32) mmol/L Anion Gap (2-11) mmol/L BUN (6-24) mg/dL Creatinine (0.51-0.95) mg/dL Est GFR ( Amer) (>60) Est GFR (Non-Af Amer) (>60) BUN/Creatinine Ratio (8-20) Glucose (70-100) mg/dL Lactic Acid 1.0 (0.5-2.0) mmol/L Calcium (8.6-10.3) mg/dL Magnesium (1.9-2.7) mg/dL Total Bilirubin (0.2-1.0) mg/dL AST (13-39) U/L ALT (7-52) U/L Alkaline Phosphatase (34-104) U/L Total Creatine Kinase (10-223) U/L CK-MB (CK-2) (0.6-6.3) ng/mL Troponin I (<0.04) ng/mL C-Reactive Protein (< 5.00) mg/L B-Natriuretic Peptide ( - 100) pg/mL Total Protein (6.4-8.9) g/dL Albumin (3.2-5.2) g/dL Globulin (2-4) g/dL Albumin/Globulin Ratio (1-3) Lipase (11.0-82.0) U/L TSH Microbiology and Other Data: Microbiology 09/01/17 19:25 Urine Culture - Preliminary Urine Morganella Morganii 09/01/17 19:25 Nasal Screen MRSA (PCR)(MATTHEW) - Final Nasal Mrsa Negative Assess/Plan/Problems-Billing Assessment: Ms. Jose is an 82 yo female with a complex PMH that presented to the ED on 09/01 with concerns for sepsis secondary to pneumonia, chronic decubitus ulcers, and osteomyelitis. - Patient Problems (1) Sepsis Comment: Met on admission by SIRS criteria with leukocytosis, tachycardia, and tachypnea Met on admission by SOFA criteria with qSOFA of 1 for tachypnea Source may be multifactorial: suspect chronic decubitus ulcers with suspected chronic osteomyelits, possible UTI, aspiration pna. Appreciate ID consult Continue IVF and Zosyn; vanco discontinued (2) Decubitus ulcers Code(s): L89.90 - PRESSURE ULCER OF UNSPECIFIED SITE, UNSPECIFIED STAGE Comment: With stage IV ulcer of sacrum, chronic and present on admission Also with ulceration to right inner buttock and below left buttock CT pelvis to evaluate wounds and assess for chronic osteo Plan for surgical and wound nurse consults Skin integrity management with turn and positioning Appreciate ID input (3) Multiple sclerosis Code(s): G35 - MULTIPLE SCLEROSIS Comment: Continue pain management regimen, which includes fentanyl patch, baclofen Patient unable to ambulate secondary to advanced MS (4) Neurogenic bladder Code(s): N31.9 - NEUROMUSCULAR DYSFUNCTION OF BLADDER, UNSPECIFIED Comment: Secondary to MS Urine culture pending, as UTI is possible and may be contributing to sepsis Continue Zosyn (5) Aspiration of food Code(s): T17.890A - OTH FOREIGN OBJECT IN OTH PRT RESP TRACT CAUSE ASPHYX, INIT Comment: Patient reported to have frequent choking with food and drink Poor respiratory effort secondary to body habitus and MS No infiltrate seen on CXR to confirm aspiration of pneumonia Plan for bedside dysphagia screening with nursing until speech eval can be had Aspiration precautions (6) Atrial fibrillation Code(s): I48.91 - UNSPECIFIED ATRIAL FIBRILLATION Comment: Currently appears to be in sinus rhythm Continue metoprolol (7) HTN (hypertension) Code(s): I10 - ESSENTIAL (PRIMARY) HYPERTENSION Comment: Normotensive Continue lisinopril, metoprolol. (8) CAD (coronary artery disease) Code(s): I25.10 - ATHSCL HEART DISEASE OF [place] CORONARY ARTERY W/O ANG PCTRS Comment: Stable, no active c/o chest pain Continue ASA, metoprolol, isosorbide, statin (9) Anxiety and depression Code(s): F41.8 - OTHER SPECIFIED ANXIETY DISORDERS Comment: Stable Continue prn lorazepam (10) DVT prophylaxis Comment: SQ heparin (11) DNR (do not resuscitate) Status and Disposition: OBV patient. Anticipate patient will require prolonged LOS due to medical complexity.
[2017-09-02 16:40] LABS: Magnesium 1.8 mg/dL (1.9-2.7)
[2017-09-02] MEDS ORDERED: NS 0.9% 1000 ML* 1,000 ML IV SCH (16:45)
[2017-09-02] MEDS ORDERED: Magnesium Sulfate 2 GM IV* 2 GM/50 ML BAG IVPB ONE (16:51)
[2017-09-02] MEDS ORDERED: LORazepam TAB(*) 0.5 MG PO PRN (16:52)
[2017-09-02] MEDS ORDERED: Magnesium Sulfate 2 GM IV* 2 GM/50 ML BAG ONE (17:20)
[2017-09-02] MEDS ORDERED: Vancomycin Trough Check NOTE FOLLOW UP ONE (17:30)
[2017-09-02] MEDS: NS 0.9% 1000 ML* 1,000 ML IV SCH ×2 (20:11→21:32)
--- NOTE | 2017-09-02 20:22 | CONS ---
CC: Dr. Karthik Gregory; Dr. Armendariz, [place], [place]* SURGICAL CONSULT NOTE: DATE OF CONSULT: 09/02/17 ATTENDING PHYSICIAN: Dr. Karthik Gregory. CHIEF COMPLAINT: Sacral decubitus with sepsis. HISTORY OF PRESENT ILLNESS: This is an 82-year-old female with a wound reported in the sacral area that has been present since 2011. She has a history of multiple sclerosis and is essentially immobile in relation to her lower extremities. Per her admission history and physical, she was admitted to [facility] on 07/12/17 with sepsis secondary to presumed UTI, pneumonia, and possible wound infection to the sacrum, which was diagnosed as positive for osteomyelitis by MRI imaging at that facility. Per the HPI, the patient had deteriorated and family had decided to forego aggressive therapy and she was transferred back to half-way facility in [place]. Eventually , she was transferred back to the nursing facility in [place] where she had been living and significantly improved in terms of her overall status. She reports increased pain in the area of the decubitus ulcer and in fact had an appointment for the wound clinic on 09/03/17. However, she was transferred to [facility] for further evaluation of the wound. She denies fever or chills. She has had a cough since her most recent hospital admission, but denies any chest pain or shortness of breath. She does report decreased appetite. The remainder of her history and physical is as per admission history and physical. REVIEW OF SYSTEMS: No additions to the review of systems. PHYSICAL EXAM: Height 5 feet 10 inches, weight 232 pounds, BMI 33. Temperature 97.4, blood pressure 147/50, pulse 84, respirations 16 to 24, room air saturation 96%. General: Obese, elderly female patient, lying in bed, in no acute distress. Exam is otherwise limited to the sacral and perineal areas. She does have a chronic indwelling suprapubic catheter. There are 2 skin lesions with superficial blistering of the epidermis only, one at the proximal posterior right thigh measuring approximately 1 cm in maximum dimension and with no evidence of infection. The second lesion is just superior to the sacrum and measures up to 1.6 cm in diameter but again it is superficial, clean , and without evidence of active infection. The main open wound is actually in the area of the right ischial tuberosity and with outside measurements of approximately 6 x 4 cm with undermining up to about 6 cm in multiple directions. The bone is palpable with areas of loss of cortex consistent with chronic osteomyelitis. There is some tenderness associated with the exam. However, there is no evidence of undrained collection or obvious source for sepsis other than the osteomyelitis itself. DIAGNOSTIC STUDIES/LAB DATA: Of note, admission white blood cell count 18,900, down to 15,600 this morning with left shift; hemoglobin is 10.8. Her P3 is essentially normal. Magnesium is low at 1.3. Alkaline phosphatase 172. CRP elevated at 91. Albumin is low at 1.9. IMPRESSION: Right ischial ulcer, chronic, stage IV, with evidence of chronic osteomyelitis with 2 adjacent superficial wounds, likely pressure and/or shear related. The patient has significant comorbidities including immobility secondary to multiple sclerosis, obesity, and protein malnutrition. CT scan of the pelvis was obtained and reviewed personally showing the large soft tissue defect and the bony erosion consistent with osteomyelitis. There is no evidence of drainable collection. It is not possible to determine presence of a fistula by either physical exam or the noncontrast CT. PLAN: Case will be discussed with Dr. Gregory. At this point, optimization of wound care (present saline moist packing to the wound is appropriate) with pressure reduction measures and maximization of nutritional support. The patient was seen also by Dr. Hartley and that consult is pending. Decision regarding the antibiotics and duration would be deferred to Dr. Hartley and the hospitalist team. There is no need for surgical intervention, i.e., debridement, drainage, or otherwise at the present time. We will follow while she is an inpatient. It is unlikely that this wound will heal but can be maintained as best as possible as noted above. ZAINA HUGHES [id number]/[facility] #: [id number] ABELARDO
[2017-09-03] MEDS ORDERED: NS 0.9% 1000 ML* 1,000 ML IV ONE (00:45)
[2017-09-03] MEDS: ZOSYN 3.375 GM Q8H per EXTENDED INFUSION IVPB SCH ×4 (02:29→10:57)
--- NOTE | 2017-09-03 04:17 | PN ---
Progress Note - Progress Note Date of Service: 09/03/17 Note: Nursing called earlier this shift reporting hypotension. Mrs Jose is an 82YO female admitted with sepsis suspected 2nd large chronic decubitus ulcer. Her hypotension had not responded to 2L IVFs and so her daughter/HCP was called and apprised of the situation. We had an in depth conversation and her daughter is very realistic as to her mother's prognosis. I offered transfer to ICU for pressor support, but also advised that I did not feel that would be effective in changing the current course of decline. Her daughter opted for non- escalation with the understanding that if Mrs Jose did not improve by the AM with the current treatment, consideration for withdrawal of curative care and shifting to comfort-only measures would be appropriate. Questions were sought and answered to her satisfaction.
[2017-09-03] MEDS: guaiFENesin ER TAB 600 MG PO SCH (05:07)
[2017-09-03] MEDS: Heparin VIAL(*) 5000 UNITS/ML VIAL (FIVE THOUSAND) SUBCUT SCH (05:07)
[2017-09-03] MEDS: fentaNYL Patch Check Q Shift 1 NOTE SCH (07:18)
[2017-09-03 08:00] LABS: Add Diff/Slide Review? Slide Review Added; Comments Flag Yes; Hematocrit 27 % (35-47); Hemoglobin 8.7 g/dl (12.0-16.0); Mean Corpuscular HGB Conc 32 g/dl (31-36); Mean Corpuscular Hemoglobin 30 pg (27-31); Mean Corpuscular Volume 94 fL (80-97); Mean Platelet Volume 8 um3 (7.4-10.4); Red Cell Distribution Width 18 % (10.5-15); White Blood Count 15.6 10^3/ul (3.5-10.8)
[2017-09-03] MEDS: Gabapentin CAP(*) 400 MG PO SCH ×2 (08:32→13:18)
[2017-09-03 08:43] LABS: BUN/Creatinine Ratio 14.1 (8-20); Blood Urea Nitrogen 13 mg/dL (6-24); C Reactive Protein 40.42 mg/L (< 5.00); CO2 Carbon Dioxide 20 mmol/L (22-32); Chloride 111 mmol/L (101-111); EGFR African American 75.5 (>60); EGFR Non-African American 58.7 (>60); Glucose 96 mg/dL (70-100); Sodium 135 mmol/L (133-145)
[2017-09-03] MEDS: Atorvastatin* 10 MG TAB PO SCH (08:44)
[2017-09-03] MEDS: Aspirin EC Low Dose* 81 MG TAB.EC PO SCH (08:44)
[2017-09-03] MEDS: Baclofen TAB* 10 MG PO SCH (08:44)
[2017-09-03 08:52] LABS: Anion Gap 4 mmol/L (2-11)
--- NOTE | 2017-09-03 10:27 | PN ---
Progress Note - Progress Note Date of Service: 09/03/17 SOAP: Subjective: CC: decubitus ulcer HPI: 82 yo woman with multiple sacral decubiti for many years with malaise and anorexia; overnight hypotension with mild response to IVF. No chest pain, abd pain, diarrhea, or fever. Appetite ok. Objective: Vital Signs Temp 35.8 C 09/03/17 08:34 Pulse 56 09/03/17 08:24 Resp 18 09/03/17 08:24 BP 82/38 09/03/17 08:24 Pulse Ox 95 09/03/17 08:24 Intake & Output 09/02/17 09/03/17 09/03/17 18:59 06:59 18:59 Intake Total 1919 7289.6 110 Output Total 300 150 Balance 1619 7139.6 110 Intake: IV Fluids 1349 4749.6 ABX - ZOSYN 179.9 NS (0.9%) 0 2419.7 IVPB 2100 110 Oral 570 440 Output: Urine 0 Crump 300 150 Other: # Bowel Movements 1 0 Gen:awake, no distress HEENT:PERLL, MMM Heart:Regular, bradycardic no murmur Lungs: CTA BL Abd:+BS NTND soft Skin: no rash MSK: sacral decub x3, no surrounding erythema Laboratory Results - last 24 hr 09/02/17 09/02/17 09/03/17 07:01 07:01 07:48 WBC 15.6 H RBC 2.90 L Hgb 8.7 L Hct 27 L MCV 94 MCH 30 MCHC 32 RDW 18 H Plt Count 288 MPV 8 Neut % (Auto) 67.8 Lymph % (Auto) 21.4 L [place] % (Auto) 8.4 Eos % (Auto) 1.7 Baso % (Auto) 0.7 Absolute Neuts (auto) 10.6 H Absolute Lymphs (auto) 3.3 Absolute Monos (auto) 1.3 H Absolute Eos (auto) 0.3 Absolute Basos (auto) 0.1 Absolute Nucleated RBC 0.03 Nucleated RBC % 0.2 Hem Pathologist Commnt Sodium 140 Potassium 3.5 Chloride 112 H Carbon Dioxide 25 Anion Gap 3 BUN 9 Creatinine 0.48 L Est GFR ( Amer) 160.0 Est GFR (Non-Af Amer) 124.4 BUN/Creatinine Ratio 18.8 Glucose 84 Calcium 7.9 L Magnesium 1.8 L C-Reactive Protein 09/03/17 07:48 WBC RBC Hgb Hct MCV MCH MCHC RDW Plt Count MPV Neut % (Auto) Lymph % (Auto) [place] % (Auto) Eos % (Auto) Baso % (Auto) Absolute Neuts (auto) Absolute Lymphs (auto) Absolute Monos (auto) Absolute Eos (auto) Absolute Basos (auto) Absolute Nucleated RBC Nucleated RBC % Hem Pathologist Commnt Sodium 135 Potassium TNP Chloride 111 Carbon Dioxide 20 L Anion Gap 4 BUN 13 Creatinine 0.92 Est GFR ( Amer) 75.5 Est GFR (Non-Af Amer) 58.7 BUN/Creatinine Ratio 14.1 Glucose 96 Calcium 7.0 L Magnesium C-Reactive Protein 40.42 H Microbiology 09/01/17 19:25 Urine Culture - Preliminary Urine Morganella Morganii 09/01/17 12:25 Aerobic Blood Culture - Preliminary Blood Venous No Growth Day 1 Anaerobic Blood Culture - Preliminary No Growth Day 1 09/01/17 12:55 Aerobic Blood Culture - Preliminary Blood Venous No Growth Day 1 Anaerobic Blood Culture - Preliminary No Growth Day 1 CT pelvis: ischeal osteomyelitis Assessment: 1. chronic osteomyelitis of ischeum 2. elevated CRP due to wound infection, sacrum 3. hypotension, w decr MS and UOP 4. incr Cr and minimal muscle mass so CrCl probably overestimates GFR Plan: 1. continue zosyn to complete 7 days then doxycycline 100 mg po bid and flagyl 500 mg po bid for 6-8 weeks if she tolerates it. alf prognosis for cure of this infection is low. 35 minutes floor time >50% counseling and coordinating care regarding treatment of her sacral infection.
[2017-09-03] MEDS ORDERED: Morphine ORAL CONCENTRATE* 5 MG/0.25 ML ORAL.SYRIN PO PRN (12:29)
--- NOTE | 2017-09-03 13:14 | DCNOTE ---
Subjective Date of Service: 09/03/17 Interval History: Patient seen and examined at bedside. Patient is lethargic. Recent systolic BP 68. She is able to answer simple questions but then closes eyes. Denies pain and appears comfortable. Family History: Unchanged from Admission Social History: Unchanged from Admission Past Medical History: Unchanged from Admission Objective Active Medications: Acetaminophen (Tylenol Tab*) 650 mg PO Q4H PRN Aspirin (Aspirin Ec Low Dose*) 81 mg PO DAILY [facility] Atorvastatin Calcium (Lipitor*) 10 mg PO DAILY FE Baclofen (Lioresal Tab*) 10 mg PO DAILY [facility] Fentanyl (Duragesic Patch 25 Mcg/Hr*) 25 mcg TRANSDERM Q72H FE Gabapentin (Neurontin Cap(*)) 800 mg PO TID FE Guaifenesin (Mucinex*) 600 mg PO Q12H FE Lorazepam (Ativan Tab(*)) 0.5 mg PO Q4H PRN Morphine Sulfate (Morphine Oral Concentrate*) 5 mg PO Q2H PRN Ondansetron HCl (Zofran Inj*) 4 mg IV Q6H PRN Pharmacy Profile Note (Fentanyl Patch Check Q Shift) 0 note N/A 0700,1900 [facility] Pharmacy Profile Note (Scopolamine Patch Remove*) 1 note PATCH OFF Q72H [facility] Scopolamine (Transderm-Scop 1.5 Mg Patch*) 1 patch TRANSDERM Q72H [facility] Vital Signs Temp Pulse Resp BP Pulse Ox 96 F 54 16 68/35 93 09/03/17 11:15 09/03/17 11:47 09/03/17 11:47 09/03/17 11:47 09/03/17 11:47 Oxygen Devices in Use Now: None Appearance: sitting in bed, NAD Eyes: No Scleral Icterus Ears/Nose/Mouth/Throat: NL Teeth, Lips, Gums Neck: NL Appearance and Movements; NL JVP Respiratory: Symmetrical Chest Expansion and Respiratory Effort, Clear to Auscultation Cardiovascular: NL Sounds; No Murmurs; No JVD, RRR Abdominal: NL Sounds; No Tenderness; No Distention Lymphatic: No Axillary Adenopathy Skin: - - wound not examined Neurological: NL Muscle Strength and Tone, - - intermittently alert; follows commands Lines/Tubes/Other Access: Clean, Dry and Intact Mott, Clean, Dry and Intact Peripheral IV Nutrition: Taking PO's Result Diagrams: 09/03/17 07:48 09/03/17 07:48 Additional Lab and Data: . Microbiology and Other Data: . Assess/Plan/Problems-Billing Ms. Jose is an 82 yo female with a complex PMH that presented to the ED on 09/01 with concerns for sepsis secondary to pneumonia, chronic decubitus ulcers, and osteomyelitis. - Patient Problems (1) Sepsis Comment: Plan for comfort care with sever hypotension. Will start PRN morphine in addition to current pain regimen. (2) Decubitus ulcers Comment: Suspect osteo and sepsis as a result. Appreciate ID input. Daughter in agreement for comfort measures only. (3) Atrial fibrillation Comment: Beta ramya on hold due to hypotension (4) CAD (coronary artery disease) Comment: Stable, no active c/o chest pain. Continue ASA and statin. (5) HTN (hypertension) Comment: Anti-hypertensives held due to hypotension. (6) Multiple sclerosis Comment: Continue pain management regimen, which includes fentanyl patch, baclofen. Patient unable to ambulate secondary to advanced MS (7) Neurogenic bladder Comment: Secondary to MS. Maintain mott. (8) DVT prophylaxis Comment: SQ heparin d/c due to comfort care. (9) DNR (do not resuscitate) Status and Disposition: Daughter in agreement with comfort measures only. Plan to transfer patient back to [facility] this afternoon.
[2017-09-03 13:36] VITALS: BP 68/35
--- NOTE | 2017-09-03 15:39 | DS ---
CC: [facility], Dr. Armendariz * DATE OF ADMISSION: 09/01/2017. DATE OF DISCHARGE: 09/03/2017. PRIMARY CARE PHYSICIAN: [facility]. CONSULTATIONS WHILE IN THE HOSPITAL: Dr. Zafar Hartley, Infectious Disease; ZAINA Jimenez, General Surgery. ATTENDING PHYSICIAN: Dr. Lilia Patel * (report dictated by Sadie Saldivar NP). PRIMARY DIAGNOSES: 1. 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 2. Stage 4 pressure ulcer. 3. Hypertension. SECONDARY DIAGNOSES: 1. Atrial fibrillation. 2. Multiple sclerosis. 3. Hypertension. 4. Neurogenic bladder. 5. Breast cancer. STUDIES WHILE IN THE HOSPITAL: CT scan of the abdomen and pelvis, 09/02/2017: There is a large soft tissue defect along the right buttock extending to the ischium and inferior pubic ramus with associated erosion and periosteal reaction consistent with decubitus ulcer with osteomyelitis. MEDICATIONS AT THE TIME OF DISCHARGE: New Medication: 1. Morphine oral concentrate 5 mg oral every 2 hours as needed. The following medications are medications the patient can continue: 1. Fentanyl patch 25 mcg transdermal q.72 hours. 2. Ativan 0.5 mg every 4 hours as needed. 3. Mucinex 600 mg oral every 12 hours. 4. Erythromycin 0.5% ophthalmic both eyes daily. 5. Scopolamine 1.5 mg transdermal every 72 hours. 6. Dulcolax 10 mg rectal daily as needed. 7. Tylenol 1000 mg oral every 8 hours as needed. 8. Neurontin 800 mg oral 3 times daily. 9. Ipratropium [place] 0.06% both nares twice daily. 10. Erythromycin eye ointment one application both eyes twice daily. 11. Zocor 20 mg oral daily. 12. Vitamin C 500 mg oral daily. 13. Melatonin 10 mg oral at bedtime as needed. 14. Baclofen 10 mg oral daily. 15. Asper-Flex 10% topical every evening. 16. Val 180 mg oral daily as needed. The patient shall discontinue Doxycycline, Simethicone, Toprol XL, Lisinopril, Imdur, and low dose aspirin. HISTORY OF PRESENT ILLNESS AND HOSPITAL COURSE: Ms. Jose is an unfortunate 82-year-old female who was a resident of [place] for rehab after a hospitalization at [facility] in June 2017. The patient had a stage 4 pressure ulcer and had been on oral antibiotics. There was concern that the wound was infected and the patient was brought to [facility] for further evaluation. Please refer to the history and physical dictated by Alexys Solitario NP for full details. The patient is bedbound because of severe multiple sclerosis. The patient was admitted to the medical floor for sepsis likely from the sacral osteomyelitis. She had a CT scan of her abdomen and pelvis that showed a large soft tissue defect on the buttock extending to the ischium and pubic rami with likely a periosteal reaction consistent with osteomyelitis. The patient was placed on IV fluids as well as IV antibiotics. She was seen in consultation by Dr. Zafar Hartley as well as ZAINA Burns from Surgery. Surgery did not recommend any further debridement and Dr. Hartley recommended IV Zosyn. On the first day, the patient's blood pressure remained stable and she was able to eat and drink. Subsequently overnight to hospital day two, the patient developed significant hypotension. The patient's systolic blood pressure was in the 70s. The patient was given three liters of IV fluid without much improvement in her blood pressure. Additionally, her mentation slowed. The patient was arousable and able to answer simple questions , but was very fatigued. She was able to eat some of her meals with assistance. Because of her decline, there was a conversation with the patient' s daughter, Vida Sadler. The patient's daughter felt very strongly that there was to be no escalation of care that would include transfer to ICU or initiation of pressors. I personally contacted the patient's daughter again once the patient's blood pressure remained low in the 60s. The patient's daughter was in agreement that the best option would be for the patient to return to the [facility] with comfort measures. A new MOLST form was filled out that included a do not hospitalize order and comfort measures that do not include IV fluids or antibiotics. Although the patient's systolic blood pressure is 68, she is mentating and she will be transported back for comfort care at the facility. Vitals are as follows: Temperature 97.4, heart rate 54, respiratory rate 16, last blood pressure at 11:47 68/35, oxygen saturation 93 percent. The patient's condition is guarded, yet her lives at the facility and the daughter and care team felt that she was stable to return to the facility for comfort care there. DISCHARGE PLAN: The patient is being discharged with many of her home medications, yet many of the antihypertensives and other vitamins have been discontinued for comfort care. The patient has oral Morphine as well as Ativan written. In addition, she has a Fentanyl patch which could also be increased. I have reviewed this plan of care with the patient's daughter and she is agreeable with her transfer back to [facility]. CONDITION ON DISCHARGE: Guarded and is to be comfort care only. SADIE SALDIVAR, FLIGHT SURGEON [id number]/CPS #: [id number]
== END 2017-09-03 14:35 | DRG 871 ==
LOC: ED 11:35 → MED 15:26 → OBSVTOIN 09-02 15:00
PROVIDERS: ADMIT Internal Medicine; ATTEND Hospitalist
DX: A41.9 Sepsis, unspecified organism (principal); L89.154 Pressure ulcer of sacral region, stage 4; I95.9 Hypotension, unspecified; E46 Unspecified protein-calorie malnutrition; G35 Multiple sclerosis; I48.91 Unspecified atrial fibrillation; C67.9 Malignant neoplasm of bladder, unspecified; N31.2 Flaccid neuropathic bladder, not elsewhere classified; M46.28 Osteomyelitis of vertebra, sacral and sacrococcygeal region; I10 Essential (primary) hypertension; I25.10 Atherosclerotic heart disease of native coronary artery without angina pectoris; Z66 Do not resuscitate; E66.9 Obesity, unspecified; K21.9 Gastro-esophageal reflux disease without esophagitis; F41.9 Anxiety disorder, unspecified; F32.9 Major depressive disorder, single episode, unspecified; T17.920A Food in respiratory tract, part unspecified causing asphyxiation, initial encounter; Z96.653 Presence of artificial knee joint, bilateral; X58.XXXA Exposure to other specified factors, initial encounter; Z85.3 Personal history of malignant neoplasm of breast; Z90.49 Acquired absence of other specified parts of digestive tract; Z90.10 Acquired absence of unspecified breast and nipple; Z90.710 Acquired absence of both cervix and uterus; Z82.49 Family history of ischemic heart disease and other diseases of the circulatory system; Z74.01 Bed confinement status; Z88.1 Allergy status to other antibiotic agents; Z88.2 Allergy status to sulfonamides; Z88.8 Allergy status to other drugs, medicaments and biological substances; Y92.9 Unspecified place or not applicable; Z68.33 Body mass index [BMI] 33.0-33.9, adult
CPT/HCPCS: 36415; 71010; 72192; 80048; 80053; 81003; 81015; 82550; 82553; 83605; 83690; 83735; 83880; 84443; 84484; 85025; 85060; 85379; 85610; 85730; 86140; 87040; 87077; 87086; 87186; 87641; 93005; 96365; 96366; 96375; A9270-GY; G0378; J1644; J2405; J2543; J3370; J3475